=== PATIENT | female | born 1990 | race Caucasian/White ===

== ENCOUNTER 2017-10-15 19:26 | Emergency (ER) | payer OTHER ==
--- NOTE | 2017-10-15 20:51 | EDM.PDOC ---
ED HPI GENERAL MEDICAL PROBLEM - General Chief Complaint: Lower Extremity Injury/Pain Stated Complaint: R ANKLE INJURY Time Seen by Provider: 10/15/17 20:21 Source of Information: Reports: Patient History Limitations: Reports: No Limitations - History of Present Illness INITIAL COMMENTS - FREE TEXT/NARRATIVE: 27 yo presents with right ankle injury. she stepped in hole this afternoon medially rolling her right ankle. She did fall after injury and was very painful to walk. She did hear and feel a pop. no previous ankle injuries. generally healthy. - Related Data Allergies Allergy/AdvReac Type Severity Reaction Status Date / Time No Known Allergies Allergy Verified 10/15/17 20:21 Home Meds: Home Meds NK [No Known Home Meds] 10/15/17 [History] PNV No.115/Iron Fumarate/FA [ 19 Chewable Tablet] 10/15/17 [History] Past Medical History - Past Health History Medical/Surgical History: Denies Medical/Surgical History Social & Family History - Tobacco Use Smoking Status *Q: Never Smoker Review of Systems - Review of Systems Review Of Systems: See Below Constitutional: Denies: Chills, Fever Respiratory: Denies: Shortness of Breath, Wheezing Cardiovascular: Denies: Chest Pain ED EXAM, GENERAL - Physical Exam Exam: See Below Exam Limited By: No Limitations General Appearance: Alert, WD/WN, No Apparent Distress Respiratory/Chest: No Respiratory Distress Peripheral Pulses: 2+: Posterior Tibial (R), Dorsalis Pedis (R) Extremities: Joint Swelling, Other (lateral ankle moderate tenderness. ROM limited by pain) Course - Vital Signs Last Recorded V/S: Last Vital Signs Temp 37.1 C 10/15/17 20:25 Pulse 94 10/15/17 20:25 Resp 18 10/15/17 20:25 BP 115/73 10/15/17 20:25 Pulse Ox 97 10/15/17 20:25 - Orders/Labs/Meds Orders: Active Orders 24 hr Category Date Time Status Ankle Min 3V Rt [CR] Stat Exams 10/15/17 20:45 Taken - Re-Assessments/Exams Free Text/Narrative Re-Assessment/Exam: 10/15/17 21:41 preliminary read of ankle x-ray no acute fractures or dislocation. stirrup brace applied. Departure - Departure Time of Disposition: 21:32 Disposition: Home, Self-Care 01 Condition: Good Clinical Impression: Sprained ankle Qualifiers: Encounter type: initial encounter Involved ligament of ankle: unspecified ligament Laterality: right Qualified Code(s): S93.401A - Sprain of unspecified ligament of right ankle, initial encounter - Discharge Information Instructions: How to Use a Stirrup Ankle Brace, [id number] Referrals: PCP,None [Primary Care Provider] - Forms: ED Department Discharge Additional Instructions: splint for 7 days ice as much as possible for the next 48 hours increase activity as tolerated - My Orders Last 24 Hours: My Active Orders 10/15/17 20:45 Ankle Min 3V Rt [CR] Stat - Assessment/Plan Last 24 Hours: My Active Orders 10/15/17 20:45 Ankle Min 3V Rt [CR] Stat
--- NOTE | 2017-10-18 10:08 | CR ---
Findings: No fracture or dislocation.
== END 2017-10-15 21:45 | disposition home or self-care (01) ==
LOC: JP.ED 19:26
DX: S93.401A Sprain of unspecified ligament of right ankle, initial encounter (principal); W18.42XA Slipping, tripping and stumbling without falling due to stepping into hole or opening, initial encounter
CPT/HCPCS: 73610-26-RT; 73610-RT; 99284